=== PATIENT | male | born 1955 | race African-American/Black ===

== ENCOUNTER 2018-07-20 17:53 | Emergency (ER) | payer SELFPAY ==
[~2018-07-20] VITALS: Ht 177.8 cm; Wt 67.1 kg
[2018-07-20 19:05] LABS: BASO % 1 % (0-3); EOS % 0 % (0-3); HEMATOCRIT 38.5 % (39.0-53.0); HEMOGLOBIN 13.4 g/dL (13.0-17.5); LYMPH # 0.9 x10^3/uL (1.0-4.8); LYMPH % 11 % (24-48); MEAN CORPUSCULAR HEMOGLOBIN 31 pg (25-35); MEAN CORPUSCULAR HGB CONC 35 g/dL (31-37); MEAN CORPUSCULAR VOLUME 88 fL (79-100); MONO # 0.4 x10^3/uL (0.0-1.1); MONO % 5 % (0-9); NEUT # 6.5 x10^3uL (1.8-7.7); NEUT % 84 % (31-73); PLATELET COUNT 249 x10^3/uL (140-400); RED BLOOD COUNT 4.36 x10^6/uL (4.30-5.70); RED CELL DISTRIBUTION WIDTH 14.4 % (11.5-14.5); WHITE BLOOD COUNT 7.8 x10^3/uL (4.0-11.0)
--- NOTE | 2018-07-20 19:08 | PHYS DOC ---
Past Medical History Past Medical History: Prostatitis Past Surgical History: No Surgical History Smoking: Less than 1pk/day Alcohol Use: Heavy Drug Use: None Adult General Chief Complaint Chief Complaint: ABDOMINAL PAIN HPI HPI Patient is a 63-year-old male that presented to the ED with left lower quadrant pain that began this morning. Patient reports that the pain is sharp. It is not associated with meals or movement. Patient reports that the pain radiates to the lower back. Patient reports taking a Tylenol today that did not relieve the pain. Patient states the pain is a 8 out of 10. Patient has a history of prostatitis but this pain does not feel like that, denies constipation or diarrhea, reports a couple episodes of emesis this morning. Reports feeling like he needs to urinate but can't, denies dysuria or hematuria. Patient denies trauma. Review of Systems Review of Systems Constitutional: Denies fever or chills [] Eyes: Denies change in visual acuity, redness, or eye pain [] HENT: Denies nasal congestion or sore throat [] Respiratory: Denies cough or shortness of breath [] Cardiovascular: No additional information not addressed in HPI [] GI: Denies abdominal pain, nausea, vomiting, bloody stools or diarrhea [] : Denies dysuria or hematuria [] Musculoskeletal: Denies back pain or joint pain [] Integument: Denies rash or skin lesions [] Neurologic: Denies headache, focal weakness or sensory changes [] Endocrine: Denies polyuria or polydipsia [] All other systems were reviewed and found to be within normal limits, except as documented in this note. Current Medications Current Medications Current Medications Medications (Trade) Dose Ordered Sig/Deysi Start Time Stop Time Status Last Admin Dose Admin Acetaminophen/ Hydrocodone Bitart (Lortab 7.5/325) 1 tab 1X ONCE 07/20/18 23:00 07/20/18 23:00 DC 07/20/18 22:31 1 TAB Famotidine (Pepcid Vial) 20 mg 1X ONCE 07/20/18 19:30 07/20/18 19:31 DC 07/20/18 19:24 20 MG Fentanyl Citrate (Fentanyl 2ml Vial) 50 mcg 1X ONCE 07/20/18 19:30 07/20/18 19:31 DC 07/20/18 19:24 50 MCG Morphine Sulfate (Morphine Sulfate) 4 mg STK-MED ONCE 07/20/18 20:34 07/20/18 20:35 DC Ondansetron HCl (Zofran) 4 mg 1X ONCE 07/20/18 19:30 07/20/18 19:31 DC 07/20/18 19:24 4 MG Sodium Chloride 1,000 ml @ 1,000 mls/hr 1X ONCE 07/20/18 19:30 07/20/18 20:29 DC 07/20/18 19:24 1,000 MLS/HR Allergies Allergies Allergies Coded Allergies Type Severity Reaction Last Updated Verified No Known Drug Allergies 07/20/18 No Physical Exam Physical Exam Constitutional: Well developed, well nourished, no acute distress, non-toxic appearance. [] HENT: Normocephalic, atraumatic, nose normal. [] Eyes: Conjunctiva normal, no discharge. [] Neck: Normal range of motion, no tenderness, supple. [] Cardiovascular: Heart rate regular rhythm, no murmur [] Lungs & Thorax: Bilateral breath sounds clear to auscultation [] Abdomen: Soft, nondistended, tenderness to palpation in the LLQ, non-peritoneal , negative heel strike. [] Skin: Warm, dry, no erythema, no rash. [] Back: No tenderness, no CVA tenderness. [] Extremities: No tenderness, no edema. [] Neurologic: Alert and oriented X 3, no focal deficits noted. [] Psychologic: Affect normal, judgement normal, mood normal. [] Current Patient Data Vital Signs Vital Signs Date Time Temp Pulse Resp B/P (MAP) Pulse Ox O2 Delivery O2 Flow Rate FiO2 07/20/18 22:00 82 18 167/85 (112) 97 07/20/18 18:15 97.6 Room Air 97.6 Lab Values Laboratory Tests Test 07/20/18 18:00 07/20/18 19:00 07/20/18 20:23 White Blood Count 7.8 x10^3/uL (4.0-11.0) Red Blood Count 4.36 x10^6/uL (4.30-5.70) Hemoglobin 13.4 g/dL (13.0-17.5) Hematocrit 38.5 % (39.0-53.0) L Mean Corpuscular Volume 88 fL (79-100) Mean Corpuscular Hemoglobin 31 pg (25-35) Mean Corpuscular Hemoglobin Concent 35 g/dL (31-37) Red Cell Distribution Width 14.4 % (11.5-14.5) Platelet Count 249 x10^3/uL (140-400) Neutrophils (%) (Auto) 84 % (31-73) H Lymphocytes (%) (Auto) 11 % (24-48) L Monocytes (%) (Auto) 5 % (0-9) Eosinophils (%) (Auto) 0 % (0-3) Basophils (%) (Auto) 1 % (0-3) Neutrophils # (Auto) 6.5 x10^3uL (1.8-7.7) Lymphocytes # (Auto) 0.9 x10^3/uL (1.0-4.8) L Monocytes # (Auto) 0.4 x10^3/uL (0.0-1.1) Eosinophils # (Auto) 0.0 x10^3/uL (0.0-0.7) Basophils # (Auto) 0.0 x10^3/uL (0.0-0.2) Prothrombin Time 12.9 SEC (11.7-14.0) Prothrombin Time INR 1.0 (0.8-1.1) PTT 27 SEC (24-38) Sodium Level 134 mmol/L (136-145) L Potassium Level 4.7 mmol/L (3.5-5.1) Chloride Level 94 mmol/L (98-107) L Carbon Dioxide Level 29 mmol/L (21-32) Anion Gap 11 (6-14) Blood Urea Nitrogen 17 mg/dL (8-26) Creatinine 1.7 mg/dL (0.7-1.3) H Estimated GFR (Cockcroft-Gault) 49.3 BUN/Creatinine Ratio 10 (6-20) Glucose Level 113 mg/dL (70-99) H Calcium Level 9.5 mg/dL (8.5-10.1) Magnesium Level 1.8 mg/dL (1.8-2.4) Total Bilirubin 0.6 mg/dL (0.2-1.0) Aspartate Amino Transferase (AST) 28 U/L (15-37) Alanine Aminotransferase (ALT) 21 U/L (16-63) Alkaline Phosphatase 182 U/L (46-116) H Total Protein 8.0 g/dL (6.4-8.2) Albumin 4.1 g/dL (3.4-5.0) Albumin/Globulin Ratio 1.1 (1.0-1.7) Lipase 112 U/L (73-393) Lactic Acid Level 1.5 mmol/L (0.4-2.0) Urine Collection Type Unknown Urine Color Yellow Urine Clarity Cloudy Urine pH 6.0 Urine Specific [place] 1.020 Urine Protein 30 mg/dL (NEG-TRACE) Urine Glucose (UA) Negative mg/dL (NEG) Urine Ketones (Stick) 15 mg/dL (NEG) Urine Blood Small (NEG) Urine Nitrite Negative (NEG) Urine Bilirubin Negative (NEG) Urine Urobilinogen Dipstick 0.2 mg/dL (0.2 mg/dL) Urine Leukocyte Esterase Negative (NEG) Urine RBC 11-20 /HPF (0-2) Urine WBC 1-4 /HPF (0-4) Urine Squamous Epithelial Cells Few /LPF Urine Bacteria 0 /HPF (0-FEW) Urine Mucus Slight /LPF Laboratory Tests 07/20/18 18:00 Laboratory Tests 07/20/18 18:00 EKG EKG [] Radiology/Procedures Radiology/Procedures CT Abdomen without Contrast: Findings: Evaluation of solid organs is limited without contrast. Evaluation of stomach and bowel is limited without oral contrast. There are sclerotic lesions scattered throughout the osseous structures. Liver: Normal. Spleen: Normal. Pancreas: Normal. Adrenal Glands: Normal. Kidneys: There is moderate right hydronephrosis and right hydroureter. There is no stones seen. There is no free air or free fluid. There is no lymphadenopathy. Impression: Please see CT Pelvis without Contrast. End Impression. CT Pelvis without Contrast: Findings: The urinary bladder is fairly distended and has minimal wall thickening. The prostate is not well seen. The appendix is not well seen. There is no free fluid. There is no lymphadenopathy. There is no pericolonic inflammation identified. Impression: 1. Round sclerotic lesions throughout the osseous structures are suspicious for metastatic prostate cancer. Recommend correlation with PSA. 2. There is moderate right hydroureter and right hydronephrosis without a radiopaque stones seen. 2. The prostate is not well seen and could be mildly enlarged. There is also minimal wall thickening of the urinary bladder which could be secondary to outlet pathology. End impression PQRS Compliance Statement: One or more of the following individualized dose reduction techniques were utilized for this examination: 1. Automated exposure control 2. Adjustment of the mA and/or kV according to patient size 3. Use of iterative reconstruction technique Electronically signed by: Siddharth Maciel III, MD (07/20/2018 7:32 PM) [facility] Course & Med Decision Making Course & Med Decision Making Pertinent Labs and Imaging studies reviewed. (See chart for details) Patient is a 63-year-old male who presented with left lower quadrant pain that began this morning. Patient has a history of prostatitis, currently taking Flomax. Patient reports urinary retention and urgency. History of present illness and physical exam concerning for possible kidney stone. Labs were obtained and posted to chart. CMP showed creatinine of 1.7, we did not have previous labs to compare to. Noncontrast abdominal CT was negative for ureteral calculi, but did show right sided hydronephrosis. Urinalysis was positive for small amount of urine blood, 11-20 RBCs. I discussed the option of hospital admission and investigation of acute renal insufficiency, the patient was more comfortable with being discharged and following up with his PCP/urologist. Pain management and nausea was addressed. Patient stable for discharge with outpatient follow-up with PCP/urologist. Discussed findings and plan with patient and family, who acknowledge understanding and agreement. Dragon Disclaimer Dragon Disclaimer This electronic medical record was generated, in whole or in part, using a voice recognition dictation system. Departure Departure Impression: Primary Impression: Abdominal pain Additional Impressions: Renal insufficiency Hydronephrosis Hematuria Disposition: 01 HOME, SELF-CARE Condition: STABLE Referrals: UNKNOWN PCP NAME (PCP) Patient Instructions: Abdominal Pain (Nonspecific), Diet for Kidney Stones, Kidney Stones, Eqfl-oq-Nmoh Additional Instructions: Your kidney function was elevated today (1.7). Please follow up with your doctor to have it rechecked. Scripts Ondansetron (ONDANSETRON ODT) 4 Mg Tab.rapdis 1 TAB PO PRN Q6-8HRS PRN for VOMITING, #16 TAB Prov: ANJU BENZ DO 07/20/18 Hydrocodone/Apap 5-325 (NORCO 5-325 TABLET) 1 Each Tablet 1 TAB PO PRN Q6HRS PRN for PAIN, #10 TAB 0 Refills Prov: ANJU BENZ DO 07/20/18 Problem Qualifiers Primary Impression: Abdominal pain Abdominal location: left lower quadrant Qualified Codes: R10.32 - Left lower quadrant pain Additional Impressions: Hydronephrosis Hydronephrosis type: unspecified Qualified Codes: N13.30 - Unspecified hydronephrosis Hematuria Hematuria type: unspecified type Qualified Codes: R31.9 - Hematuria, unspecified ANJU BENZ DO Jul 20, 2018 19:08
[2018-07-20 19:22] LABS: PROTHROMBIN TIME PATIENT 12.9 SEC (11.7-14.0)
[2018-07-20 19:25] LABS: CALCIUM 9.5 mg/dL (8.5-10.1); CREATININE 1.7 mg/dL (0.7-1.3); GFR 49.3; POTASSIUM 4.7 mmol/L (3.5-5.1)
[2018-07-20 19:30] LABS: ALBUMIN 4.1 g/dL (3.4-5.0); ALBUMIN/GLOBULIN RATIO 1.1 (1.0-1.7); MAGNESIUM 1.8 mg/dL (1.8-2.4); TOTAL BILIRUBIN 0.6 mg/dL (0.2-1.0)
[2018-07-20] MEDS ORDERED: ONDANSETRON PF 4 MG/2 ML VIAL. IV ONE (19:30)
[2018-07-20] MEDS ORDERED: fentaNYL PF VIAL 100 MCG/2 ML VIAL IV ONE (19:30)
[2018-07-20] MEDS ORDERED: IV NORMAL SALINE 1000ML BAG 1,000 ML IV ONE (19:30)
[2018-07-20] MEDS ORDERED: FAMOTIDINE 20 MG/2 ML VIAL IVP ONE (19:30)
--- NOTE | 2018-07-20 19:37 | RAD ---
Abdominal and Pelvis CT, Without Contrast: History: Left lower quadrant pain. Comparison: None. Procedure: Axial images are obtained of the abdomen and pelvis, without IV or oral contrast. CT Abdomen without Contrast: Findings: Evaluation of solid organs is limited without contrast. Evaluation of stomach and bowel is limited without oral contrast. There are sclerotic lesions scattered throughout the osseous structures. Liver: Normal. Spleen: Normal. Pancreas: Normal. Adrenal Glands: Normal. Kidneys: There is moderate right hydronephrosis and right hydroureter. There is no stones seen. There is no free air or free fluid. There is no lymphadenopathy. Impression: Please see CT Pelvis without Contrast. End Impression. CT Pelvis without Contrast: Findings: The urinary bladder is fairly distended and has minimal wall thickening. The prostate is not well seen. The appendix is not well seen. There is no free fluid. There is no lymphadenopathy. There is no pericolonic inflammation identified. Impression: 1. Round sclerotic lesions throughout the osseous structures are suspicious for metastatic prostate cancer. Recommend correlation with PSA. 2. There is moderate right hydroureter and right hydronephrosis without a radiopaque stones seen. 2. The prostate is not well seen and could be mildly enlarged. There is also minimal wall thickening of the urinary bladder which could be secondary to outlet pathology. End impression PQRS Compliance Statement: One or more of the following individualized dose reduction techniques were utilized for this examination: 1. Automated exposure control 2. Adjustment of the mA and/or kV according to patient size 3. Use of iterative reconstruction technique Electronically signed by: Siddharth Maciel III, MD (07/20/2018 7:32 PM) [facility]
[2018-07-20 20:32] LABS: BILIRUBIN,URINE NEGATIVE (NEG); CLARITY,URINE CLOUDY; COLOR,URINE YELLOW; NITRITE,URINE NEGATIVE (NEG); PROTEIN,URINE 30 mg/dL (NEG-TRACE); UROBILINOGEN,URINE 0.2 mg/dL (0.2 mg/dL)
[2018-07-20] MEDS ORDERED: MORPHINE SULFATE 4 MG/ML VIAL. ONE (20:34)
[2018-07-20 20:38] LABS: BACTERIA,URINE 0 /HPF (0-FEW); SQUAMOUS EPITHELIAL CELL,UR FEW /LPF
[2018-07-20] MEDS ORDERED: MORPHINE SULFATE 4 MG/ML VIAL. IV ONE (20:45)
[2018-07-20 22:00] VITALS: BP 167/85
[2018-07-20] MEDS ORDERED: ONDA4TAB12 PO (22:48)
[2018-07-20] MEDS ORDERED: HYDR-3164 PO (22:48)
[2018-07-20] MEDS ORDERED: HYDROcodone/APAP 7.5/325MG 1 TAB TABLET PO ONE (23:00)
== END 2018-07-20 22:54 | disposition home or self-care (01) ==
LOC: ER 17:53
DX: N28.9 Disorder of kidney and ureter, unspecified (principal); N13.30 Unspecified hydronephrosis; R31.9 Hematuria, unspecified; R10.32 Left lower quadrant pain; R11.10 Vomiting, unspecified; F10.20 Alcohol dependence, uncomplicated; Y90.9 Presence of alcohol in blood, level not specified; F17.200 Nicotine dependence, unspecified, uncomplicated
CPT/HCPCS: 36415; 74176; 80053; 81001; 83605; 83690; 83735; 85025; 85610; 85730; 96361; 96374; 96375; 99284; J2270; J2405; J3010; J3490; J7030

== ENCOUNTER → 2018-07-23 | Outpatient (CLI) | payer SELFPAY ==
[2018-07-20 22:00] VITALS: BP 167/85
[~2018-07-23] MED LIST: CONTRAST GIVEN. MC PRN; HYDR-3164 PO; IOHEXOL 240 MG/ML 50ML VIAL. PO ONE; IOHEXOL 300 MG/ML 100ML VIAL. IV ONE; ONDA4TAB12 PO
--- NOTE | 2018-07-23 13:39 | RAD ---
Radionuclide bone scan, 07/23/2018: HISTORY: Elevated PSA Whole-body imaging was performed following IV injection of 26.62 mCi of technetium 99m MDP. No previous bone scan is available at this time for comparison purposes. The following findings are delineated: 1. There are multiple foci of abnormal activity in the thoracic and lumbar spine. The current CT study demonstrates scattered predominantly sclerotic lesions in the thoracolumbar vertebral bodies compatible with metastatic disease. 2. There are foci of increased activity in the left sacral wing, the right sacrum near the sacroiliac joint and along the superior/medial sadler of the right acetabulum. 3. There is increased activity along the right side of the sternum and along the posterior aspect of the the right 10th rib. 4. There is a small focus of increased activity projected over the right occiput. 5. Additional scattered areas of increased activity at both hands, wrists, right knee and shoulders are likely on an arthritic basis. IMPRESSION: Multiple foci of abnormal radionuclide uptake as described above, compatible with metastatic disease, with dominant involvement of the thoracolumbar spine and pelvis. Electronically signed by: Jose Rucker MD (07/23/2018 1:34 PM) [facility]
--- NOTE | 2018-07-23 13:40 | RAD ---
CT of the abdomen and pelvis with contrast 07/23/2018 INDICATION: Elevated PSA. Sclerotic bone lesions. COMPARISON STUDY: CT of the abdomen and pelvis without contrast 3 days ago July 20, 2018. TECHNIQUE: Multidetector CT imaging of the abdomen and pelvis was performed following the administration of IV contrast. FINDINGS: There are several 5 mm and smaller pleural-based nodules noted along the major fissures, right middle lobe, and lingula. These are nonspecific. Visualized lung bases are otherwise unremarkable. Liver and gallbladder are grossly unremarkable.Spleen is unremarkable. Pancreas appears grossly unremarkable. The left kidney is unremarkable. No evidence of left-sided hydronephrosis is identified. There is right-sided hydronephrosis with relative hypoenhancement of the right kidney suggesting some degree of obstructive uropathy. The right ureter is dilated. The bladder wall is diffusely thickened. There is a rounded nodular mass arising from the superior left posterior bladder wall measuring 8 mm in diameter (axial image 58, coronal image 24). The prostate is irregular in enhancement, and contour. The prostate appears to invade the inferior bladder. Irregular extension the posterior prostate is also seen. Findings are concerning for malignancy. Prostate measures roughly 7.6 cm AP by 7.6 cm longitudinal by 4.6 cm transverse. The appearance is concerning for prostate malignancy. Multifocal abnormal enhancing pelvic and retroperitoneal adenopathy is seen. No abnormally enlarged, enhancing note is seen in the pelvis on axial image 66 measuring 2.3 cm in diameter. Abnormal masslike adenopathy is seen situated between the left ilium, and iliac vessels. Distinguishment from the underlying vessels is difficult (axial image 60, coronal image 28). Reference retroperitoneal adenopathy can be seen on axial image 41, coronal image 24 this exerts mass effect upon the IVC. Notably the right hydronephrosis is not visualized in the distal most ureter and may be the result of retroperitoneal adenopathy, as opposed occurring at the level the bladder. Multifocal sclerotic skeletal lesions are seen concerning for metastatic prostate cancer. There is a rounded lesion in the left inferior pubic rami measuring 6 mm in size. Another small focus in the more posterior right fascia ischium measuring 7 mm in size . Sclerotic lesions in the bilateral posterior acetabulum are noted somewhat less specific in appearance. At L2 there is a 2.2 cm rounded sclerotic lesion in the posterior vertebral body extending to the pedicle on the left. Within the superior posterior vertebral body on the left at L1, a smaller lesion is seen measuring 1.2 cm in diameter. A large peripherally sclerotic lesion is seen within the. Left vertebral body at T11. Small sclerotic lesion in the lateral ribs T7 is noted. IMPRESSION: 1. Irregular, enlarged prostate which appears to invade the inferior bladder. Findings concerning for prostate cancer. 2. Multifocal pelvic and retroperitoneal adenopathy as well as sclerotic lesions scattered throughout the axial skeleton consistent with metastatic disease. 3. Right hydronephrosis, hydroureter sparing the most distal ureter as described above in detail, with relative decreased enhancement of the right kidney concerning for obstructive uropathy. 4. Abnormal pedunculated nodule in the superior posterior left bladder. In isolation the appearance would suggest a small bladder neoplasm, however given other findings metastatic disease is possible. 5. Nonspecific small, pleural opacities in the lung bases. CT surveillance recommended. Findings were called to the ordering physician's nurse at 1:30 PM 07/23/2018 CT DOSING PQRS STATEMENT: One or more of the following individualized dose reduction techniques were utilized for this examination: 1. Automated exposure control 2. Adjustment of the mA and/or kV according to patient size 3. Use of iterative reconstruction technique Electronically signed by: Clay Burk MD (07/23/2018 1:35 PM) [facility]
== END | disposition home or self-care (01) ==
LOC: NM 09:40
PROVIDERS: ATTEND Family Medicine
DX: N40.0 Benign prostatic hyperplasia without lower urinary tract symptoms (principal); N13.39 Other hydronephrosis; N13.4 Hydroureter; R59.0 Localized enlarged lymph nodes; R91.8 Other nonspecific abnormal finding of lung field; M48.8X4 Other specified spondylopathies, thoracic region
CPT/HCPCS: 74177; 78306; 96374; A9503; Q9966; Q9967

== ENCOUNTER 2018-08-01 06:48 | Outpatient (CLI) | payer SELFPAY ==
[~2018-08-01] VITALS: Ht 177.8 cm; Wt 67.1 kg
[~2018-08-01 06:48] MED LIST changes: -CONTRAST GIVEN. MC PRN; -IOHEXOL 240 MG/ML 50ML VIAL. PO ONE; -IOHEXOL 300 MG/ML 100ML VIAL. IV ONE
[2018-08-01 07:27] LABS: BASO % 1 % (0-3); EOS # 0.1 x10^3/uL (0.0-0.7); EOS % 3 % (0-3); HEMATOCRIT 38.7 % (39.0-53.0); LYMPH # 1.3 x10^3/uL (1.0-4.8); LYMPH % 35 % (24-48); MEAN CORPUSCULAR HEMOGLOBIN 30 pg (25-35); MEAN CORPUSCULAR HGB CONC 34 g/dL (31-37); MEAN CORPUSCULAR VOLUME 88 fL (79-100); MONO # 0.5 x10^3/uL (0.0-1.1); MONO % 13 % (0-9); NEUT # 1.7 x10^3uL (1.8-7.7); NEUT % 48 % (31-73); PLATELET COUNT 306 x10^3/uL (140-400); RED BLOOD COUNT 4.41 x10^6/uL (4.30-5.70); RED CELL DISTRIBUTION WIDTH 14.1 % (11.5-14.5); WHITE BLOOD COUNT 3.5 x10^3/uL (4.0-11.0)
[2018-08-01 07:47] LABS: PROTHROMBIN TIME PATIENT 12.5 SEC (11.7-14.0)
--- NOTE | 2018-08-01 08:23 | NUR ---
Patient ate donuts and drank soda an hour before arrival. Several attempts to contact patient yesterday for pre instruction information, left voicemail. Patient stated he did not check his voicemail and was not aware the need to be NPO. Patient stated he wants moderation sedation and wishes to be rescheduled. Patient educated on the need to be NPO and to bring current medications to next appointment. Patient rescheduled for Sunday, August 05, 2018 at 0700. Patient and agreed and verbalized understanding of instructions.
== END 2018-08-01 08:00 | disposition home or self-care (01) ==
LOC: INTRAD 06:48
PROVIDERS: ATTEND Urology
DX: R97.20 Elevated prostate specific antigen [PSA] (principal); Z53.8 Procedure and treatment not carried out for other reasons
CPT/HCPCS: 36415; 85025; 85610

== ENCOUNTER 2018-08-05 07:02 | Outpatient (CLI) | payer SELFPAY ==
[~2018-08-05] VITALS: Ht 177.8 cm; Wt 66.2 kg
[2018-08-05] MEDS ORDERED: TAMS0.4C2 PO (07:31)
[2018-08-05 07:33] VITALS: BP 150/83
[2018-08-05] MEDS ORDERED: MIDAZOLAM HCL/PF 2 MG/2 ML VIAL. ONE ×2 (08:04→08:50)
[2018-08-05] MEDS ORDERED: fentaNYL PF VIAL 100 MCG/2 ML VIAL ONE (08:05)
[2018-08-05] MEDS ORDERED: LIDOCAINE WITH 8.4% SOD BICARB 3 ML DISP.SYRIN. ONE (08:42)
[2018-08-05] MEDS ORDERED: MIDAZOLAM HCL/PF 2 MG/2 ML VIAL. IV ONE ×2 (08:45→09:30)
[2018-08-05] MEDS ORDERED: LIDOCAINE WITH 8.4% SOD BICARB 3 ML DISP.SYRIN. IJ ONE (08:45)
[2018-08-05] MEDS ORDERED: fentaNYL PF VIAL 100 MCG/2 ML VIAL IV ONE (08:45)
[2018-08-05 09:13] VITALS: BP 135/88
[2018-08-05 09:30] VITALS: BP 137/80
[2018-08-05 09:45] VITALS: BP 133/74
[2018-08-05 10:00] VITALS: BP 139/75
[2018-08-05 10:13] VITALS: BP 138/72
--- NOTE | 2018-08-05 10:40 | NUR ---
pt discharge instructions given to pt and family. Pt ambulated and tolerated PO. pt home with family
--- NOTE | 2018-08-05 14:25 | RAD ---
Fluoroscopic guided biopsy, L2 left pedicle and posterior vertebral body 08/05/2018 Indication: Multifocal sclerotic bony lesions, most likely metastatic prostate carcinoma Discussion: The risks and benefits of the procedure were discussed the patient. Informed consent was obtained. A timeout procedure was performed. The overlying skin was prepped and draped in the usual sterile fashion. All elements of maximal sterile barrier technique including the use of a cap, mask, sterile gown, sterile gloves, large sterile sheet, appropriate hand hygiene, and 2% chlorhexidine for cutaneous antisepsis (or acceptable alternative antiseptic per current guidelines) were followed for this procedure. Using a left transpedicular approach, and direct fluoroscopic guidance, a trocar needle was advanced into the pedicle, just posterior to the junction of the pedicle and vertebral body. Position was repeatedly confirmed fluoroscopically. Core biopsy samples were obtained under direct fluoroscopic guidance, with the biopsy needle extending into the posterior third of the superior left vertebral body. Manual pressure was held. Samples were placed in formalin. Sterile dressings were applied. Patient tolerated the procedure well, without apparent complication. The procedures performed under conscious sedation including continuous cardiopulmonary monitoring via a dedicated sedation nurse. Cxel-yj-qpii sedation time: 30 minutes. Fluoroscopy time: 3.7 min Dose area product: 1068.8 uGym2 Impression: Fluoroscopically guided biopsy, pedicle and superior left vertebral body, L2
--- NOTE | 2018-08-07 16:08 | PATHOLOGY ---
[facility] Accession Number: [id number] . 01 Material submitted: . BIOPSY OF L2 . 01 Clinical history: . Prostate cancer . 02 Diagnosis: Segments of bone, L2 vertebral body core biopsies: - METASTATIC POORLY DIFFERENTIATED PROSTATIC ADENOCARCINOMA. SEE COMMENT. LBQ/08/07/2018 . 02 Comment: Sections of the L2 vertebral body core biopsy reveal two segments of bone. One of the cores reveals a preserved fibrotic marrow which contains cords and small clusters of atypical cells which show varying degrees of crush artifactual changes. The accompanying bony trabeculae are thickened and sclerotic. A panel of immunoperoxidase stains is obtained on block A1 and yields the following results: . Cytokeratin MIKEY: Tumor cells positive. CAM5.2: Tumor cells positive. PSA: Tumor cells positive. PSAP: Tumor cells positive. P-504S: Tumor cells focally weakly positive. . The morphologic and immunophenotypic findings are supportive of the diagnosis of metastatic poorly differentiated prostatic adenocarcinoma. The case is also examined by Dr. Moon, who concurs with the diagnosis. (JPM/db/ashley; 08/07/2018) . Special stains performed: Immunoperoxidase stains for cytokeratin MIKEY, CAM5.2, PSA, PSAP, and P-504S. . 02 Electronically signed: . Ozzy Maciel MD, Pathologist NPI- [id number] . 01 Gross description: . The specimen is received in formalin, labeled "Leno Moses, biopsy of L2", are two cylindrical cores of buckley bone measuring 0.5 cm and 0.6 cm in length with an average 0.2 cm diameter. The specimen is entirely submitted in A1 after decalcification. (SWS; 08/05/2018) SHS/SHS . 02 Pathologist provided ICD-10: C79.51 . 02 CPT . 988120, [id number], [id number] Specimen Comment: A courtesy copy of this report has been sent to Specimen Comment: [phone], . Specimen Comment: Report sent to / DR REGAN Specimen Comment: A duplicate report has been generated due to demographic updates. Performed at: 01 [facility] [address], [place] [id number] MD Grey Ramsey MD Phone: [phone] Performed at: 02 [facility] [address] [place], [place] [id number] MD Ozzy Maciel MD Phone: [phone]
== END 2018-08-05 10:42 | disposition home or self-care (01) ==
LOC: INTRAD 07:02
PROVIDERS: ATTEND Urology
DX: C79.51 Secondary malignant neoplasm of bone (principal); C61 Malignant neoplasm of prostate; Z79.899 Other long term (current) drug therapy; Z72.89 Other problems related to lifestyle; F17.210 Nicotine dependence, cigarettes, uncomplicated
CPT/HCPCS: 20225; 88307; 88341; 88342; 99152; 99153; J2250; J3010

== ENCOUNTER → 2019-03-25 | Outpatient (CLI) | payer MEDICAID ==
[~2019-03-25] MED LIST changes: +BICA50TA47 PO; +TAMS0.4C2 PO
--- NOTE | 2019-03-25 11:42 | RAD ---
EXAM: Renal sonogram. HISTORY: Bladder mass. Right hydronephrosis. TECHNIQUE: Sonographic imaging of the kidneys and bladder was performed. COMPARISON: CT dated 07/23/2018. FINDINGS: The right kidney measures 10.7 cm [id number]-cooq. The left kidney measures 11.5 cm [id number]. There is moderate right hydronephrosis. There is diffuse urinary bladder wall thickening. There is a masslike lesion within the bladder base measuring 3.5 x 3.3 x 2.7 cm. This appears to be separate from a heterogeneous enlarged prostate with a volume of 52 cc. The ureteral jets are both seen. The aorta and inferior vena cava are predominantly obscured due to bowel gas. IMPRESSION: 1. Moderate right hydronephrosis, similar compared to the prior CT. Both ureteral jets are seen during the exam. 2. Diffusely thickened urinary bladder wall with possible superimposed mass at the bladder base measuring 3.5 cm. This appears separate from an enlarged prostate. This can be better characterized with cystoscopy or CT urogram. Electronically signed by: Gabby Penaloza MD (03/25/2019 11:38 AM) [facility]
== END | disposition home or self-care (01) ==
LOC: US 09:53
PROVIDERS: ATTEND Urology
DX: C61 Malignant neoplasm of prostate (principal); N13.30 Unspecified hydronephrosis
CPT/HCPCS: 76770

== ENCOUNTER → 2019-03-25 | Outpatient (CLI) | payer MEDICAID ==
--- NOTE | 2019-03-25 13:22 | RAD ---
DATE: 03/25/2019 EXAM: DIGITAL DIAGNOSTIC BILATERAL, BREAST RIGHT HISTORY: Left breast palpable abnormality COMPARISON: None This study was interpreted with the benefit of Computerized Aided Detection (CAD). Breast Density: SCATTERED The breast parenchyma shows scattered fibroglandular densities. Breast parenchyma level B. FINDINGS: Glandular breast tissues is noted involving the left subareolar region compatible with gynecomastia. No left breast mass, calcification, or distortion. There is a small mass involving the right upper inner breast surrounding coarse calcification is noted. It is just deep to the skin. Limited ultrasound imaging of the right breast was performed. Approximately 6 cm from the nipple at the 1:30 region, there is a hypoechoic lesion deep to the skin measuring up to 0.5 cm x 0.5 cm x 0.4 cm tall. It is irregularly marginated. This appears to have minimal calcification in its dependent aspect. This finding likely represents a sebaceous cyst. The right axilla is unremarkable. Limited ultrasound imaging of the left breast also was performed. Imaging of the left axilla was also performed and is unremarkable. No suspicious left subareolar region findings. IMPRESSION: Left gynecomastia. Right breast lesion which probably represents a sebaceous cyst. BI-RADS CATEGORY: 3 PROBABLY BENIGN FINDING(S)-SHORT INTERVAL FOLLOW-UP SUGGESTED. Six-month follow-up ultrasound exam of the right breast lesion is recommended to assess stability. Left gynecomastia is evident and clinical follow-up is recommended. RECOMMENDED FOLLOW-UP: 6M 6 MONTH FOLLOW-UP PQRS compliance statement: Patient information was entered into a reminder system with a target due date pending follow-up in 6 months for the next mammogram. Mammography is a sensitive method for finding small breast cancers, but it does not detect them all and is not a substitute for careful clinical examination. A negative mammogram does not negate a clinically suspicious finding and should not result in delay in biopsying a clinically suspicious abnormality. "Our facility is accredited by the [employer] Mammography Program."
== END | disposition home or self-care (01) ==
LOC: MAMMO 09:23
PROVIDERS: ATTEND Nurse Practitioner Family
DX: N63.12 Unspecified lump in the right breast, upper inner quadrant (principal); N62 Hypertrophy of breast; R92.1 Mammographic calcification found on diagnostic imaging of breast; N64.89 Other specified disorders of breast; D49.3 Neoplasm of unspecified behavior of breast
CPT/HCPCS: 76641; 77066

== ENCOUNTER → 2019-04-24 | Outpatient (CLI) | payer MEDICAID ==
[~2019-04-24] MED LIST changes: +CONTRAST GIVEN. MC PRN; +IOHEXOL 240 MG/ML 50ML VIAL. PO ONE; +IOHEXOL 300 MG/ML 100ML VIAL. IV ONE
--- NOTE | 2019-04-24 14:54 | RAD ---
EXAM: 1. CT OF THE CHEST, ABDOMEN AND PELVIS WITH CONTRAST. 2. BONE SCINTIGRAPHY. HISTORY: Prostate cancer. TECHNIQUE: Computed tomography of the chest, abdomen and pelvis was performed after the intravenous administration of iodinated contrast. 25.1 mCi technetium 99m MDP was administered intravenously. Scintigraphic images of the entire body were obtained in anterior and posterior projections after a delay. COMPARISON: None. FINDINGS: Bone windows reveal multiple sclerotic lesions mostly within the lumbar spine. Smaller lesions are seen within the sternum, thoracic spine, ribs and pelvis. There is a mostly lytic lesion within the right superior acetabulum. Each of these sites demonstrate intense radiotracer uptake consistent with metastatic disease. Additional scintigraphic uptake at the medial compartment of the right knee and within both hands is most likely degenerative. There are no pathologically enlarged mediastinal or axillary lymph nodes. There is no pleural or pericardial effusion. The heart is not enlarged. There are atherosclerotic calcifications of the coronary arteries. Aortic valve calcifications are also noted. Lung windows reveal mild to moderate centrilobular and paraseptal emphysema. The liver, gallbladder, pancreas and adrenal glands are unremarkable. There are calcified granulomas in the spleen. There is moderate right hydronephrosis and proximal hydroureter. The transition point appears to be at the crossing point of the common iliac artery. The right kidney is at least mildly atrophic and enhances less avidly than the left. The left kidney is unremarkable. A small umbilical hernia contains a nonobstructed small bowel loop. The appendix is not inflamed. There is no small bowel obstruction. The prostate is mildly larger patient age. There is no clear extracapsular extension of a mass. There is moderate bladder wall thickening. There is a soft tissue mass along the left pelvic sidewall likely secondary to involvement of obturator lymph nodes. It measures 2.4 x 1.4 cm. No other enlarged lymph nodes are seen. IMPRESSION: 1. Osseous metastatic disease throughout the axial skeleton as above. 2. A soft tissue mass along left pelvic sidewall likely reflects involvement of obturator lymph nodes. No additional lymph node involvement is seen. 3. Moderate right hydronephrosis with mild right renal atrophy. The point of obstruction appears to be at the crossing point of the iliac artery. 4. Mild to moderate centrilobular and paraseptal emphysema. 5. Small umbilical hernia containing a nonobstructed small bowel loop. 6. Diffuse bladder wall thickening indicates chronic outlet obstruction or inflammation. *One or more of the following individualized dose reduction techniques were utilized for this examination: 1. Automated exposure control. 2. Adjustment of the mA and/or kV according to patient size. 3. Use of iterative reconstruction technique. Electronically signed by: Sergei Oswald MD (04/24/2019 2:52 PM) [facility]
== END | disposition home or self-care (01) ==
LOC: NM 13:07
PROVIDERS: ATTEND Internal Medicine Hematology & Oncology
DX: C79.51 Secondary malignant neoplasm of bone (principal); C61 Malignant neoplasm of prostate; N13.30 Unspecified hydronephrosis; N26.1 Atrophy of kidney (terminal); J43.2 Centrilobular emphysema; K42.9 Umbilical hernia without obstruction or gangrene; N32.89 Other specified disorders of bladder; D73.89 Other diseases of spleen; I70.0 Atherosclerosis of aorta; I25.10 Atherosclerotic heart disease of native coronary artery without angina pectoris; M89.8X8 Other specified disorders of bone, other site; M79.89 Other specified soft tissue disorders
CPT/HCPCS: 71260; 74177; 78306; A9503; Q9966; Q9967

== ENCOUNTER → 2019-12-28 | Outpatient (CLI) | payer MEDICAID ==
[~2019-12-28] MED LIST changes: +IOHEXOL 240 MG/ML 100 ML VIAL. IV ONE; +IOHEXOL 300 MG/ML 50 ML VIAL. PO ONE
[2019-12-28 08:43] LABS: CREATININE 1.5 mg/dL (0.7-1.3); GFR 56.8
--- NOTE | 2019-12-28 10:27 | RAD ---
Examination: CT CHEST ABD PELVIS W/CONTRAST History: Reason: PROSTATE CA / Spl. Instructions: IV OMNI 300 60 MLS AND PO OMNI 240 50 MLS / History: Comparison/Correlation: 04/24/2019 CT chest abdomen and pelvis with contrast Findings: Axial images of the chest, abdomen, and pelvis were obtained following IV contrast. Sagittal and coronal reformatted images were provided. Oral contrast was utilized. Centrilobular emphysematous involvement of the lung armenta again. No pulmonary nodule or mass. No infiltrates, pleural effusion, pneumothorax, or enlarged thoracic lymph nodes in the interval. Coronary arterial calcification noted at the proximal left anterior descending coronary artery. Liver, spleen, pancreas, and gallbladder fossa are unremarkable. Left collecting system is unremarkable. Right ureteral stent is present. Moderate right renal atrophy is seen. Previously noted hydronephrosis and proximal hydroureter are no longer evident with the stent in place in the interval. Urinary bladder is mostly decompressed with circumferential wall thickening presumably related to the decompressed state. Left adrenal gland there were 9 cm nodule is suggested and stable. Right adrenal gland is normal. Small umbilical hernia contains omental fat and a small amount nonstrangulated segment of small bowel. No bowel obstruction. Left pelvic sidewall soft tissue density likely representing obturator lymph node involvement is decreased in the interval currently measuring 2.2 cm anteroposterior by 1 cm transverse. Prostatomegaly again seen. Multiple bony sclerotic metastases previously seen are present but with notably decreased sclerotic appearance. Compression deformity of the L3 superior endplate is evident. This is new since the prior exam. Vertebral body height loss of the 50 percent noted. Slight retropulsion or periosteal reaction at the posterior aspect of the L3 vertebral body is present with effacement of the spinal canal by about a 30 percent. Significant disc space narrowing from L3 to S1 is present. Disc space vacuum phenomenon also seen. Impression: Decreased sclerotic appearance of multiple bony metastases. L3 compression deformity in the interval with moderate spinal canal stenosis. Decreased left pelvic sidewall soft tissue mass density which probably corresponds to the obturator lymph nodes. No new mass or new enlarged lymph nodes. Resolution of right-sided hydronephrosis and interval placement of a stent. PQRS Compliance Statement: One or more of the following individualized dose reduction techniques were utilized for this examination: 1. Automated exposure control 2. Adjustment of the mA and/or kV according to patient size 3. Use of iterative reconstruction technique Electronically signed by: Rafa Delatorre MD (12/28/2019 10:24 AM) [id number]
--- NOTE | 2019-12-28 12:49 | RAD ---
Examination: BONE SCAN WHOLE BODY History: Prostate cancer Comparison/Correlation: 12/28/2019 CT chest abdomen and pelvis with contrast, 04/24/2019 whole-body bone scintigraphy Findings: 26 mCi technetium 99m MDP was intravenously administered for purposes of total body bone scintigraphy. Multiple foci of intense foci of uptake are again seen. These are especially evident involving the thoracic and lumbar spine. Foci of uptake also seen involving the ribs and pelvic bones. Decrease intensity, size, and number of regions of uptake involving the thoracic spine and ribs noted intense uptake involving the upper lumbar spine is especially seen. This appears to be of greater intensity and distribution at the L2 and L3 levels as compared to the previous exam. Uptake involving the sternum is unchanged. There is new uptake involving the bony pelvis especially at the right pubic ring initial tuberosity in since the prior exam. Uptake involving the left initial tuberosity has resolved since the prior exam. Uptake involving the right acetabulum is intense similar to the prior exam. Impression: Notable increase in uptake of radiotracer in L3 with mild change in morphology of L3 corresponding to interval vertebral body compression fracture. Increased L2 uptake also seen since the prior exam without a corresponding CT finding. Decreased metastatic uptake involving the bony thorax and thoracic spine. New uptake involving the right ischial tuberosity. Resolution of left initial tuberosity uptake. Electronically signed by: Rafa Delatorre MD (12/28/2019 12:46 PM) [id number]
== END | disposition home or self-care (01) ==
LOC: NM 09:24
PROVIDERS: ATTEND Internal Medicine Hematology & Oncology
DX: C61 Malignant neoplasm of prostate (principal); K42.9 Umbilical hernia without obstruction or gangrene; M48.07 Spinal stenosis, lumbosacral region; J43.2 Centrilobular emphysema; I70.0 Atherosclerosis of aorta; N40.0 Benign prostatic hyperplasia without lower urinary tract symptoms
CPT/HCPCS: 36415; 71260; 74177; 78306; 82565; 84520; A9503; Q9966; Q9967

== ENCOUNTER → 2020-09-05 | Outpatient (CLI) | payer MEDICAID ==
[~2020-09-05] MED LIST changes: -CONTRAST GIVEN. MC PRN; -IOHEXOL 240 MG/ML 100 ML VIAL. IV ONE; -IOHEXOL 300 MG/ML 50 ML VIAL. PO ONE
--- NOTE | 2020-09-05 11:19 | RAD ---
EXAM: Chest, abdomen and pelvis CT with intravenous contrast. HISTORY: Prostate cancer restaging. TECHNIQUE: Computed tomographic images of the chest, abdomen and pelvis were obtained following the a dministration of intravenous contrast. Multiplanar reformatting was performed. *One or more of the following individualized dose reduction techniques were utilized for this examina tion: 1. Automated exposure control. 2. Adjustment of the mA and/or kV according to patient size. 3. Use of iterative reconstruction technique. COMPARISON: 12/28/2019. FINDINGS: Chest: The heart is normal in size. The thoracic aorta is normal in caliber. There is atherosclerosis involving the aorta and aortic great vessels. No pathologically enlarged mediastinal or hilar lymph node is seen. There is no pleural effusion or pneumothorax. There is minimal biapical emphysema. Ther e is no suspicious pulmonary nodule. There are sclerotic metastases involving the sternum and multipl e vertebral segments, the largest of which is seen along the left aspect of T11. There are a few lesi ons which are new or increased compared to the prior study, particularly involving the sternum. No as sociated pathologic fracture is seen. Abdomen and pelvis: No suspicious hepatic lesion is seen. There is an incidental phrygian cap within the gallbladder. The pancreas is unremarkable. There are splenic granulomas. There is a suspected 1.3 cm nodule involving the medial limb of the left adrenal gland. The stomach is unremarkable. There is right renal atrophy. There is a right nephroureteral stent with the proximal loop formed ove r the ureteropelvic junction and the distal loop within the bladder. There is no hydronephrosis. Ther e is mild bladder wall thickening. No abnormally thickened or dilated loop of bowel is seen. The prostate is normal in size. There is ao rtic and aortic branch vessel atherosclerosis. There is no aneurysm. There is a small fat-containing umbilical hernia and tiny fat-containing right inguinal hernia. There is stable increased soft tissue density along the left pelvic sidewall likely due to lymph nodes. There are sclerotic metastases involving the spine and bony pelvis. The largest lesion is seen involv ing L3. There is associated moderate pathologic compression fracture. There is expansion of the poste rior cortex at this level resulting in severe central canal stenosis. The degree of compression at th is level appears slightly increased compared to the prior study. There has been progression of a meta stasis at L2 and there are new superior endplate compression deformities at this level there are joan tional lesions which are new or increased compared to the prior exam. These are superimposed on degen erative change throughout the spine. The largest lesion involving the pelvis is seen within the super ior right acetabulum. IMPRESSION: 1. Progressive osseous metastatic disease. The number and size of lesions is increased compared to th e prior exam. There has been slight interval progression of an associated pathologic fracture at L3 a nd there are new superior endplate pathologic superior endplate compression deformities at L2. 2. Stable suspected residual or treated lymph nodes along the left pelvic sidewall. No additional lym phadenopathy is seen. 3. Stable prostate size compared to the most recent exam. This is decreased compared to the exam perf ormed 04/24/2019. There is bladder wall thickening which may be due to radiation changes. 4. Right renal atrophy and right nephroureteral stent, stable in appearance. Electronically signed by: Gabby Penaloza MD (09/05/2020 11:16 AM) [id number]
--- NOTE | 2020-09-05 13:22 | RAD ---
EXAM: Nuclear bone scan. HISTORY: Prostate cancer restaging. TECHNIQUE: Following the intravenous injection of 25 mCi of Tc 99m labeled methylene diphosphonate (M DP), whole body imaging was performed. COMPARISON: Bone scan dated 12/19/2019 and chest, abdomen and pelvis CT obtained on the same date. FINDINGS: There is increased radiotracer activity overlying the L3 vertebral body, consistent with th e location of a large sclerotic osseous metastasis and pathologic compression fracture demonstrated o n a CT performed the same date. The degree of vertebral body compression appears increased compared w ith prior CT dated 620 90,020. There is increased radiotracer activity within the adjacent L2 and L4 vertebral bodies which also corresponds with metastases. There is increased radiotracer activity with in the superior right acetabulum, also corresponding with a metastasis demonstrated on a CT performed on the same date. There is suggestion of mild activity overlying the posterior lateral seventh ribs, without a convincing CT correlate. There is mild radiotracer activity associated with multiple thora cic vertebral segments, predominantly T11. There is suspected degenerative radiotracer activity invol ving both wrists, hands and shoulders. There is a small focus of increased tracer activity involving the right mandible, likely due to reported recent tooth extraction. There is degenerative activity in volving the medial compartment of the right knee. There is a small amount of incidental urinary conta mination. IMPRESSION: Slight interval decrease in the degree of radiotracer activity associated with multiple a xial and appendicular osseous metastases. Given slight interval increase in the number and size of a sclerotic lesions on a CT performed the same date, this may be due to an increase in treated lesions rather than active lesions. The largest lesion is seen involving L3 and is associated with a patholog ic fracture. This appears to be increased compared to the prior exams. Electronically signed by: Gabby Penaloza MD (09/05/2020 1:20 PM) [id number]
== END ==
LOC: NM 10:41
PROVIDERS: ATTEND Internal Medicine Hematology & Oncology
DX: C61 Malignant neoplasm of prostate (principal); I70.0 Atherosclerosis of aorta; N26.1 Atrophy of kidney (terminal); K42.9 Umbilical hernia without obstruction or gangrene; K40.90 Unilateral inguinal hernia, without obstruction or gangrene, not specified as recurrent
CPT/HCPCS: 71260; 74177; 78306; A9503; Q9966; Q9967

== ENCOUNTER → 2020-09-12 | Outpatient (CLI) | payer MEDICAID ==
[~2020-09-12] MED LIST changes: +GADOTERATE 7.5 MMOL/15ML VIAL. IVP ONE; -IOHEXOL 240 MG/ML 50ML VIAL. PO ONE; -IOHEXOL 300 MG/ML 100ML VIAL. IV ONE
--- NOTE | 2020-09-12 13:36 | RAD ---
MRI THORACIC SPINE WITHOUT AND WITH IV CONTRAST, MRI LUMBAR SPINE WITHOUT AND WITH IV CONTRAST Date: 09/12/2020 9:44 AM Indication: CANCER STAGING. BONE PAIN. Hx PROSTATE CANCER with osseous metastatic disease. Comparison: CT abdomen pelvis 09/05/2020, nuclear medicine bone scan 09/05/2020. CT 12/28/2019 Technique: Multi-planar multi-weighted magnetic resonance imaging of the lumbar spine was performed w ith and without intravenous contrast using the standard lumbar spine protocol. [address] was administered intravenously during the examination. FINDINGS: Osseous metastatic disease, progressed in size and number since 12/28/2019. Pathologic fracture at L2 with 10 percent height loss, new since 12/28/2019. Pathologic fracture at L3 with 50 percent height lo ss, progressed since 12/28/2019. No significant listhesis. Moderate multilevel degenerative disc desiccation and disc height loss. The conus terminates at a normal level. No abnormal signal is seen within the visualized spinal cord. No clumping of intrathecal nerve roots. Right renal atrophy. Thoracic: Few tiny disc bulges. No significant spinal canal stenosis or neural foraminal narrowing T12-L1: No disc bulge. No facet arthropathy. No significant spinal stenosis or neural foraminal narro wing. L1-L2: Disc bulge. Mild facet arthropathy. No significant spinal stenosis. Mild bilateral neural fora maranda narrowing. L2-L3: Disc bulge. Mild facet arthropathy. Prominent dorsal epidural fat. Mild spinal stenosis. Mild bilateral neural foraminal narrowing. L3: Expansion of the posterior cortex into the ventral epidural space results in moderate spinal evi l stenosis. L3-L4: Disc bulge. Mild facet arthropathy. Prominent dorsal epidural fat. Mild spinal stenosis. Moder ate to severe bilateral neural foraminal narrowing. L4-L5: Disc bulge. Mild facet arthropathy. No significant spinal stenosis. Moderate bilateral neural foraminal narrowing. L5-S1: Disc bulge. Mild facet arthropathy. No significant spinal stenosis. Severe bilateral neural fo raminal narrowing. IMPRESSION: 1. Osseous metastatic disease, progressed from 12/28/2019. 2. New mild pathologic fracture at L2, and progression of height loss at L3 compared to 2019. Electronically signed by: Brian Goldberg MD (09/12/2020 1:34 PM) [id number]
== END ==
LOC: MRI 11:01
PROVIDERS: ATTEND Internal Medicine Hematology & Oncology
DX: C61 Malignant neoplasm of prostate (principal); S32.029A Unspecified fracture of second lumbar vertebra, initial encounter for closed fracture; N26.1 Atrophy of kidney (terminal); M47.817 Spondylosis without myelopathy or radiculopathy, lumbosacral region; M48.07 Spinal stenosis, lumbosacral region; X58.XXXA Exposure to other specified factors, initial encounter; Y93.89 Activity, other specified; Y92.89 Other specified places as the place of occurrence of the external cause; Y99.8 Other external cause status
CPT/HCPCS: 72157; 72158; A9575

== ENCOUNTER → 2021-06-07 | Outpatient (CLI) | payer MEDICAID ==
[~2021-06-07] MED LIST changes: -GADOTERATE 7.5 MMOL/15ML VIAL. IVP ONE; +IOHEXOL 240 MG/ML 50ML VIAL. PO ONE; +IOHEXOL 300 MG/ML 100ML VIAL. IV ONE
--- NOTE | 2021-06-07 17:35 | RAD ---
CT scan of the chest, abdomen and pelvis with contrast 06/07/2021 CLINICAL HISTORY: Prostate cancer. TECHNIQUE: After the oral and intravenous ministration contrast, contiguous, 0.625 mm axial sections were obtained through the chest, abdomen and pelvis. 5 mm reconstructed sagittal, axial and coronal i mages were obtained. 75 cc of Omnipaque 300 were administered intravenously during this examination. One or more of the following individualized dose reduction techniques were utilized for this study: 1. Automated exposure control. 2. Adjustment of the mA and/or kV according to patient size. 3. Use of iterative reconstruction technique. FINDINGS: Comparison study is dated 09/05/2020. Atherosclerotic calcification of the thoracic aorta is in its branches is seen. The thoracic aorta ta pers normally. The heart is normal in size. Scattered coronary calcifications are noted. No hilar, me diastinal or axillary lymphadenopathy is seen. Mild emphysematous changes are seen involving both lungs. No pulmonary mass or nodule is seen. No are a of consolidation is noted. No pneumothorax or pleural effusion is seen. The liver, spleen, pancreas, right adrenal gland and left kidney are within normal limits. A 1.2 cm n odule seen involving the left adrenal gland consistent with an adrenal adenoma. This is unchanged. At rophy of the right kidney is seen. A double-J ureteral stent extends from the right intrarenal collec ting system along with coarse the right ureter into the urinary bladder. Atherosclerotic calcification abdominal aorta and its branches is seen. The abdominal aorta tapers no rmally. The gallbladder is contracted. No free fluid or free air is seen within the abdomen. There is no evidence of bowel obstruction. No retroperitoneal lymphadenopathy is seen. Images through the pelvis demonstrate the urinary bladder to be slightly contracted. The prostate gla nd is mildly enlarged, unchanged. Calcifications are seen within the pelvis consistent with phlebolit hs. No pelvic or inguinal lymphadenopathy is seen. No free fluid is noted. Sclerotic lesions are seen involving the thoracic and lumbosacral vertebrae along with the bony pelvis consistent with metastas is. These are unchanged. IMPRESSION: Stable CT appearance of the chest, abdomen and pelvis as discussed above. No acute abnorm ality is seen. Electronically signed by: Waylon Canada MD (06/07/2021 5:32 PM) [id number]
--- NOTE | 2021-06-08 12:30 | RAD ---
Bone scan 06/19/2021 CLINICAL HISTORY: Metastatic prostate cancer. TECHNIQUE: 3 hours after the intravenous administration of 26.8 mCi of technetium 99m MDP, whole body imaging of the axial and appendicular skeleton was performed using the gamma camera. FINDINGS: Comparison study is dated 09/05/2020. Additional comparison is made to patient's CT scan of t he chest abdomen and pelvis performed concurrently with this study. Areas of abnormally increased activity is seen involving the lower thoracic and mid lumbar vertebra. Along with the right ilium and ischium consistent with skeletal metastasis. These have not significan tly changed. No new area of abnormally increased activity is seen. Areas of increased activity are seen involving both shoulders and both hands and wrists consistent wi th areas of degenerative change. IMPRESSION: Areas of increased activity are seen involving the lower thoracic and lumbar vertebra titus ng with the right ilium and ischium consistent with metastasis. These are unchanged. No new bony meta stasis is seen. Electronically signed by: Waylon Canada MD (06/08/2021 12:27 PM) [id number]
== END ==
LOC: NM 09:06
PROVIDERS: ATTEND Internal Medicine Hematology & Oncology
DX: C61 Malignant neoplasm of prostate (principal); J43.9 Emphysema, unspecified; N26.1 Atrophy of kidney (terminal); I70.0 Atherosclerosis of aorta; I25.10 Atherosclerotic heart disease of native coronary artery without angina pectoris; E27.8 Other specified disorders of adrenal gland; G95.89 Other specified diseases of spinal cord
CPT/HCPCS: 71260; 74177; 78306; A9503; Q9966; Q9967

== ENCOUNTER 2021-11-08 00:41 | Emergency (ER) | payer MEDICAID ==
[~2021-11-08] VITALS: Ht 175.3 cm; Wt 68.1 kg
[~2021-11-08 00:41] MED LIST changes: -IOHEXOL 240 MG/ML 50ML VIAL. PO ONE; -IOHEXOL 300 MG/ML 100ML VIAL. IV ONE
[2021-11-08] MEDS ORDERED: PENI500T PO (01:30)
--- NOTE | 2021-11-08 01:30 | PHYS DOC ---
Past Medical History Past Medical History: Prostatitis Past Surgical History: No Surgical History Smoking Status: Current Every Day Smoker Alcohol Use: Heavy Drug Use: None General Adult EDM: Chief Complaint: DENTAL PROBLEM HPI: HPI: 66-year-old male with past medical history of dental caries presents today with swelling on the right side of his face. States that it feels like his previous dental infections. Has a dentist that he sees somewhat regularly. Pain started a few days ago and the swelling has gotten gradually worse. No fever or chills. No vomiting or diarrhea. Review of Systems: Review of Systems: Constitutional: Denies fever or chills. [] Eyes: Denies change in visual acuity. [] HENT: Denies nasal congestion or sore throat. [] Respiratory: Denies cough or shortness of breath. [] Cardiovascular: Denies chest pain or edema. [] GI: Denies abdominal pain, nausea, vomiting, bloody stools or diarrhea. [] : Denies dysuria. [] Musculoskeletal: Denies back pain or joint pain. [] Integument: Denies rash. [] Neurologic: Denies headache, focal weakness or sensory changes. [] Endocrine: Denies polyuria or polydipsia. [] Lymphatic: Denies swollen glands. [] Psychiatric: Denies depression or anxiety. [] Heart Score: C/O Chest Pain: No Risk Factors: Risk Factors: DM, Current or recent (<one month) smoker, HTN, HLP, family history of CAD, obesity. Risk Scores: Score 0 - 3: 2.5% MACE over next 6 weeks - Discharge Home Score 4 - 6: 20.3% MACE over next 6 weeks - Admit for Clinical Observation Score 7 - 10: 72.7% MACE over next 6 weeks - Early Invasive Strategies Allergies: Allergies: Allergies Coded Allergies Type Severity Reaction Last Updated Verified No Known Drug Allergies 11/08/21 No Physical Exam: PE: Constitutional: Well developed, well nourished, no acute distress, non-toxic appearance. [] HENT: Patient has swelling on the right side of his face. No obvious significant erythema or induration Eyes: PERRLA, EOMI, conjunctiva normal, no discharge. [] Neck: Normal range of motion, no tenderness, supple, no stridor. [] Cardiovascular:Heart rate regular rhythm, no murmur [] Lungs & Thorax: Bilateral breath sounds clear to auscultation [] Abdomen: Bowel sounds normal, soft, no tenderness, no masses, no pulsatile masses. [] Skin: Warm, dry, no erythema, no rash. [] Back: No tenderness, no CVA tenderness. [] Extremities: No tenderness, no cyanosis, no clubbing, ROM intact, no edema. [] Neurologic: Alert and oriented X 3, normal motor function, normal sensory function, no focal deficits noted. [] Psychologic: Affect normal, judgement normal, mood normal. [] EKG: EKG: [] Radiology/Procedures: Radiology/Procedures: [] Course & Med Decision Making: Course & Med Decision Making Given the presentation of the patient I am concerned this could be a dental infection. However this could also be a parotid gland blockage from a stone. I informed him of the possibility and we will discharge him on antibiotics. If the pain does not resolve or the swelling does not come down within the next 48 hours he will see another doctor. Kala Disclaimer: Kala Disclaimer: This electronic medical record was generated, in whole or in part, using a voice recognition dictation system. Departure Departure Impression: Primary Impression: Dental caries Disposition: HOME / SELF CARE / HOMELESS Condition: STABLE Referrals: NO PCP (PCP) Patient Instructions: Dental Abscess Scripts Penicillin V Potassium (PENICILLIN V POTASSIUM) 500 Mg Tablet 2 TAB PO Q12HR for 10 Days, #40 TAB Prov: SALOME LION MD 11/08/21 SALOME LION MD November 08, 2021 01:30
[2021-11-08 01:45] VITALS: BP 176/84
== END 2021-11-08 02:18 | disposition home or self-care (01) ==
LOC: ER 00:41
DX: K02.9 Dental caries, unspecified (principal); F17.200 Nicotine dependence, unspecified, uncomplicated; F10.20 Alcohol dependence, uncomplicated; Y90.9 Presence of alcohol in blood, level not specified
CPT/HCPCS: 99283